=== PATIENT | male | born 1955 | race Caucasian/White ===

== ENCOUNTER 2023-09-22 05:54 | Day surgery (SDC) | payer MEDICARE ==
[2023-09-21 10:10] VITALS: BMI 36.9
[2023-09-22] MEDS ORDERED: Dexmedetomidine 200 MCG/2 ML VIAL ONE (06:27)
[2023-09-22] MEDS ORDERED: Propofol 1,000 MG/100 ML VIAL IV ONE ×2 (07:30→07:46)
[2023-09-22] MEDS ORDERED: EPINEPHrine 1 MG/ML VIAL ONE (07:38)
[2023-09-22] MEDS ORDERED: Lidocaine 1% PF 5 ML VIAL ONE (07:39)
[2023-09-22] MEDS ORDERED: Ondansetron PF 4 MG/2 ML Vial ONE (07:39)
[2023-09-22] MEDS ORDERED: Midazolam HCl 2 mg/2 ml Vial ONE (07:39)
[2023-09-22] MEDS ORDERED: Dexamethasone 20 MG/5 ML VIAL ONE (07:39)
[2023-09-22] MEDS ORDERED: fentaNYL 50 mcg/mL 1 mL Vial ONE (07:39)
[2023-09-22] MEDS ORDERED: PROPOFOL 20 ML ONE ×2 (07:39→07:58)
== END 2023-09-22 09:45 | disposition home or self-care (01) ==
LOC: CSHSDC 05:54
PROVIDERS: ATTEND Otolaryngology Plastic Surgery within the Head & Neck
PROC: 0CBV8ZX Excision of Left Vocal Cord, Via Natural or Artificial Opening Endoscopic, Diagnostic (ICD-10-PCS; principal; 2023-09-22)
DX: D14.1 Benign neoplasm of larynx (principal); J38.3 Other diseases of vocal cords; Z79.82 Long term (current) use of aspirin; Z79.899 Other long term (current) drug therapy; Z87.891 Personal history of nicotine dependence; I10 Essential (primary) hypertension; E78.5 Hyperlipidemia, unspecified; E66.9 Obesity, unspecified
CPT/HCPCS: 31536; J0171; J1100; J2250; J2405; J2704 ×2; J3010; 88305